=== PATIENT | female | born 1985 | race African-American/Black ===

== ENCOUNTER 2021-05-21 15:26 | Emergency (ER) | payer MEDICAID ==
[~2021-05-21] VITALS: Ht 149.9 cm; Wt 58.1 kg
[2021-05-21 15:29] VITALS: BP 126/77
--- NOTE | 2021-05-21 15:32 | NUR ---
pt placed in [facility]b at this time with pd
[2021-05-21 15:49] VITALS: BP 126/77
--- NOTE | 2021-05-21 15:49 | NUR ---
Patient discharged with v/s stable. Written and verbal after care instructions given and explained. Patient verbalized understanding. Police with in custody. All questions addressed prior to discharge. Advised to follow up with PMD.
== END 2021-05-21 15:49 | disposition home or self-care (01) ==
LOC: MED 15:26
DX: O26.891 Other specified pregnancy related conditions, first trimester (principal); Z02.89 Encounter for other administrative examinations; Z3A.12 12 weeks gestation of pregnancy
CPT/HCPCS: 99283